=== PATIENT | female | born 1980 | race Caucasian/White ===

== ENCOUNTER → 2017-12-11 10:57 | Outpatient (CLI) | payer MEDICAID, SELFPAY ==
[2017-12-11 12:10] LABS: Thyroid Stim Hormone (TSH) 2.08 uIU/mL (0.358-3.74)
== END ==
PROVIDERS: Family Provider Internal Medicine; PCP Internal Medicine; Visit Provider Nurse Practitioner
DX: E03.9 Hypothyroidism, unspecified (principal)
CPT/HCPCS: 36415; 84439; 84443